=== PATIENT | female | born 2000 | race Caucasian/White ===

== ENCOUNTER 2019-10-13 14:39 | Emergency (ER) | payer MEDICARE, MEDICAID, SELFPAY ==
[2019-10-13 14:42] VITALS: BP 132/91; PULSE 87; RESP 20; TEMP 37.1; O2SAT 97
--- NOTE | 2019-10-13 15:03 | CTR_ITS ---
PROCEDURE INFORMATION: Exam: CT Abdomen And Pelvis With Contrast Exam date and time: 10/13/2019 4:20 PM Age: 19 years old Clinical indication: Nausea and vomiting; Abdominal pain; Localized; Right lower quadrant (rlq) TECHNIQUE: Imaging protocol: Computed tomography of the abdomen and pelvis with intravenous contrast. Total DLP: 1212.04 mGy-cm Radiation optimization: All CT scans at this facility use at least one of these dose optimization techniques: automated exposure control; mA and/or kV adjustment per patient size (includes targeted exams where dose is matched to clinical indication); or iterative reconstruction. Contrast material: OMNI 300; Contrast volume: 95 ml; Contrast route: IV; COMPARISON: No relevant prior studies available. FINDINGS: Mediastinum: A small hiatal hernia is present. Liver: Unremarkable.No mass. Gallbladder and bile ducts: Normal. No calcified stones. No ductal dilation. Pancreas: Normal. No ductal dilation. Spleen: Normal. No splenomegaly. Adrenals: Normal. No mass. Kidneys and ureters: There is moderate right hydronephrosis. There is a 6 mm calculus at the right ureteral pelvic junction image 37. There is a delayed right nephrogram. There is mild right perinephric fat stranding. There is a 2.4 cm simple cyst in the right kidney. Subtle hypodensity in the right kidney compared to the left may reflect the delayed nephrogram and lack of complete enhancement but this streaky appearance may also reflect early right pyelonephritis. There are multiple renal hypodensities that cannot be further characterized on the current examination. There is a 1.3 cm simple cyst in the left kidney. There is punctate left nephrolithiasis. No left hydronephrosis. Stomach and bowel: There is no evidence of intestinal perforation or obstruction. No bowel thickening or inflammatory changes. Appendix: A normal appendix is identified. Intraperitoneal space: Unremarkable. No free air. No significant fluid collection. Vasculature: Unremarkable.No abdominal aortic aneurysm. Lymph nodes: Unremarkable.No enlarged lymph nodes. Bladder: There is nonspecific bladder wall thickening. This may be related to incomplete distention. Reproductive: There is a 4.5 cm fluid density right ovarian cyst. There is a 1.7 cm fluid density left ovarian cyst. Uterus is unremarkable. Bones/joints: Unremarkable. No acute fracture. Soft tissues: Unremarkable. CT/CT abdomen pelvis w con* [id number] IMPRESSION: 1. There is a 4.5 cm fluid density right ovarian cyst. 1.7 cm left ovarian cyst. The ovaries and adnexa are otherwise unremarkable. 2. There is a 2.4 cm simple cyst in the right kidney. There is a 1.3 cm simple cyst lower pole left kidney. No follow-up is necessary. 3. Subtle streaky cortical hypodensity in the right kidney compared to the left may reflect the delayed nephrogram and lack of complete enhancement but this streaky appearance may also reflect early right pyelonephritis. COMMENTS: Consistent with the [employer]'s Incidental Findings Committee white paper (J Am Teresita Radiol 2018): Any incidental cystic renal lesion classified in this report as too small to characterize or simple appearing is likely a benign cyst. No follow-up imaging is recommended for these lesions per consensus recommendations based on imaging criteria. Radiation Dose CTDIVOL = (mGy): DLP = 1212.04 (mGy-cm)
--- NOTE | 2019-10-13 15:04 | W.ED.GENADLT ---
HPI - General Adult General: Chief complaint: Abdominal Pain Stated complaint: abd pain Time Seen by Provider: 10/13/19 14:57 History of Present Illness: HPI narrative: Patient comes in with complaints abdominal pain for the last couple days. Patient is mild to moderate on the autism spectrum. She does communicate well but she overreacts to stimuli. History of twisted bowel years ago. Patient has been vomiting is able to keep fluids down but not food finished. Completed menses 2 days ago denies fever or chills or problems urinating bowel seem to be working good MD complaint: Abdominal pain Onset (ago): day(s) (2) Location: abdomen Radiation: non-radiation Severity: moderate Severity scale (1-10): 5 Quality: stabbing and aching Pain Consistency: constant Relieving factors: rest Exacerbating factors: movement Associated symptoms: Reports nausea and vomiting; Deny chest pain, dyspnea, headache(s) or rash Review of Systems Const: Denies: fever, chills or body aches Eyes: Denies: change in vision or blurry vision ENMT: Denies: throat pain or nasal congestion Card: Denies: chest pain or shortness of breath on exertion Resp: Denies: shortness of breath, productive cough or non-productive cough GI: Reports: abdominal pain, nausea and vomiting Musc: Denies: extremity pain Skin/Breast: Denies: rash Neuro: Denies: headache Psych: Denies: anxiety or depression Kenneth/Lymph: Denies: easy bruising PFSH ED PFSH: Social History Smoking and tobacco status: never smoked Physical Exam Const: COMMON NORMALS: no apparent distress, average body habitus and oriented x3 HENMT: COMMON NORMALS: normocephalic HEAD & SCALP: normal to inspection and normocephalic FACE & SINUS: normal facial exam Eye: COMMON NORMALS: conjunctivae normal GENERAL EYE: normal appearance of both eyes CONJUNCTIVA: Yes conjunctivae normal Neck/C-Spine: COMMON NORMALS: no JVD Chest: COMMONS NORMALS: inspection of chest normal Resp: COMMON NORMALS: normal respiratory effort and clear to auscultation bilaterally AUSCULTATION: clear to auscultation bilaterally Cardio: COMMON NORMALS: no JVD, regular rate and regular rhythm RATE: regular rate RHYTHM: regular rhythm GI: COMMON NORMALS: normal to inspection, nondistended, normoactive bowel sounds AUSCULTATION: Yes normoactive bowel sounds PALPATION: Yes tender (Generalized) Extremity: COMMON NORMALS: normal to inspection and full ROM Neuro: COMMON NORMALS: oriented x3 Course Vital Signs: Vital signs: Vital Signs Temperature 98.7 F 10/13/19 14:42 Pulse Rate 87 10/13/19 14:42 Respiratory Rate 20 H 10/13/19 14:42 Blood Pressure 132/91 10/13/19 14:42 Pulse Oximetry 97 10/13/19 14:42 Discharge Plan Discharge Prescriptions: No Action No Known Home Medications RF: 0 Coding Level of Care Code 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
[2019-10-13 15:10] VITALS: RESP 18
[2019-10-13] MEDS: sodium chloride 0.9% 1,000 ML 999 ML IV (15:15)
[2019-10-13] MEDS: ondansetron 2 mg/ML SDV 2 mL 4 MG IVP (15:16)
[2019-10-13 15:22] LABS: Basophils # 0.1 10^3/uL (0.0-0.1); Basophils % 0.6 %; Eosinophils % 0.1 %; Hematocrit 35.2 % (37.0-47.0); Hemoglobin 10.5 g/dL (11.5-15.3); Lymphocytes # 1.6 10^3/uL (0.8-4.8); Lymphocytes % 13.9 %; Mean Corpuscular HGB Conc 29.8 g/dL (30.0-36.0); Mean Corpuscular Hemoglobin 23.2 pg (28.0-34.0); Mean Corpuscular Volume 77.7 fL (81-99); Mean Platelet Volume 12.3 fL (7.4-10.4); Monocytes # 0.7 10^3/uL (0.2-0.9); Neutrophils # 9.1 10^3/uL (1.8-7.7); Neutrophils % 79.1 %; Nucleated Red Blood Cells % 0 %; Platelet Count 310 10^3/cmm (130-400); Red Blood Count 4.53 10^6/uL (4.1-5.3); Red Cell Distribution Width 14.5 % (12.1-15.1); White Blood Count 11.5 10^3/uL (4.0-10.0)
[2019-10-13 15:29] LABS: Alanine Aminotransferase 10 U/L (0-33); Albumin Level 4.2 g/dL (3.5-5.2); Alkaline Phosphatase 86 IU/L (35-105); Aspartate Amino Transferase 19 U/L (0-32); Blood Urea Nitrogen 13 mg/dL (6-20); Calcium 9.8 mg/dL (8.5-10.5); Carbon Dioxide 23 mmol/L (22-29); Chloride 102 mmol/L (98-107); Globulin 3.3 g/dL (1.3-4.6); Glomerular Filtration Rate 126.2 mL/min (90-130); Glucose 117 mg/dL (65-115); Lipase 9 U/L (13-60); Sodium 138 mmol/L (136-145); Total Bilirubin 0.4 mg/dL (0.15-1.2); Total Protein 7.5 g/dL (6.6-8.7)
[2019-10-13 15:39] VITALS: RESP 18
[2019-10-13] MEDS: morphine 4 mg/mL SDV 1 mL IVP (15:39)
[2019-10-13 15:57] LABS: HCG, Serum Qual Negative (Negative)
[2019-10-13 16:10] VITALS: O2SAT 97
[2019-10-13 16:13] LABS: Bilirubin Urine Neg (NEGATIVE); Blood Urine 3+ (Negative); Glucose Urine UA Norm (Normal); Ketones Urine Negative (Negative); Nitrate Urine Negative (Negative); Protein Urine Neg (Negative); Specific Gravity, Urine 1.005 (1.005-1.030); Urine Appearance Cloudy (CLEAR); Urine Color Dark Yellow (Yellow); pH Urine 8 (5-7)
[2019-10-13 16:14] LABS: Add Urine Microscopic? YES; Leukocyte Esterase Urine Negative (Negative); Urobilinogen Urine Norm (Negative)
[2019-10-13] MEDS: iohexol 300 mg/mL 100 mL Btl 95 ML IV (16:21)
[2019-10-13 16:24] LABS: Add Urine Culture? Yes; Bacteria Urine 3+; RBC Urine TOO NUMEROUS TO CNT /hpf (0-2); Squamous Epithelial Cell Urine 0-4 (0-5)
[2019-10-13 17:00] VITALS: RESP 17
[2019-10-13] MEDS: metoclopramide 5 mg/mL SDV 2 mL IVP (17:15)
[2019-10-13 17:35] VITALS: BP 130/8; PULSE 85; RESP 16; O2SAT 97
== END 2019-10-13 17:36 | disposition home or self-care (01) ==
PROVIDERS: Emergency Provider Nurse Practitioner Family; PCP Family Medicine
DX: R10.9 Unspecified abdominal pain (principal); R11.2 Nausea with vomiting, unspecified; F84.0 Autistic disorder
CPT/HCPCS: 12345; 74177; 80053; 81001; 83690; 84703; 85025; 87086; 96360; 96361; 96374; 96375; 99283; A9270; J2270; J2405; J2765; J7030; Q9967

== ENCOUNTER → 2020-03-10 14:37 | Outpatient (BNVA) | payer MEDICARE, MEDICAID, SELFPAY | PROVIDERS: PCP Family Medicine; Visit Provider Nurse Practitioner Family | DX: R30.0 Dysuria (principal); N39.0 Urinary tract infection, site not specified | CPT/HCPCS: 80053; 81000; 87086 ==